=== PATIENT | female | born 1940 | race Caucasian/White ===

== ENCOUNTER 2019-03-06 11:05 | Outpatient (CLI) | payer MEDICARE, OTHER ==
[2019-03-06] MEDS ORDERED: IOVERSOL 320 100 ML VIAL IVP ONE ×2 (11:22→17:43)
[2019-03-06] MEDS ORDERED: IOVERSOL 320 50 ML VIAL ONE (11:22)
[2019-03-06 12:04] LABS: CREATININE 0.7 mg/dL (0.4-1.0)
--- NOTE | 2019-03-06 15:43 | CT Report ---
Reason: ABDOMINAL PAIN Procedure Date: 03/06/2019 Accession Number: [id number] / [id number] Procedure: CT - Abdomen/Pelvis W CPT Code: FULL RESULT: EXAM: CT ABDOMEN AND PELVIS EXAM DATE: 03/06/2019 12:45 PM. CLINICAL HISTORY: Abdominal pain. COMPARISONS: None. TECHNIQUE: Routine helical CT imaging was performed through the abdomen and pelvis. IV contrast: 100 mL of Optiray 320. Enteric contrast: Yes. Reconstructions: Coronal and sagittal. In accordance with CT protocol optimization, one or more of the following dose reduction techniques were utilized for this exam: automated exposure control, adjustment of mA and/or KV based on patient size, or use of iterative reconstructive technique. FINDINGS: Lung Bases: Unremarkable. Liver: Normal. No masses. Gallbladder/Bile Ducts: Unremarkable. Spleen: Normal. Pancreas: Normal. Adrenal Glands: Normal. Kidneys: There are bilateral renal hypodensities which are too small to characterize. Peritoneal Cavity/Bowel: There is sigmoid diverticulosis with focal thickening of the bowel wall in the region of a diverticulum and surrounding phlegmonous inflammatory changes with a minimal amount of free fluid in the pelvis. There is no free air or extramural abscess. Pelvic Organs: Normal. The bladder and visualized pelvic organs are within normal limits. Vasculature: No aneurysms or other significant abnormality. Bones: No significant abnormality. Other: None. IMPRESSION: Uncomplicated sigmoid diverticulitis. [facility] The above call report findings were discussed with Osmani Carrington, parts room assistant to Dr. Titus by Dr. Joseph Salazar at 03:39 PM on 03/06/2019.
[2019-03-06] MEDS ORDERED: IOVERSOL 320 50 ML VIAL PO ONE (17:43)
== END 2019-03-06 11:06 | disposition home or self-care (01) ==
LOC: LAB 11:05
PROVIDERS: ATTEND Internal Medicine
DX: K57.32 Diverticulitis of large intestine without perforation or abscess without bleeding (principal)
CPT/HCPCS: 36415; 74177; 82565; Q9967

== ENCOUNTER 2019-09-30 11:11 | Outpatient (CLI) | payer MEDICARE, OTHER ==
--- NOTE | 2019-09-30 14:45 | XRAY Report ---
Reason: L HIP PAIN Procedure Date: 09/30/2019 Accession Number: [id number] / [id number] Procedure: XR - Hip w/Pelvis 2-3V LT CPT Code: Final Report FULL RESULT: EXAM: LEFT HIP RADIOGRAPHY EXAM DATE: 09/30/2019 11:34 AM. CLINICAL HISTORY: Left hip pain. COMPARISON: None. TECHNIQUE: 2 views. FINDINGS: Bones: Normal. No fractures or bone lesion. Joints: Marginal osteophytosis is seen at the femoroacetabular joint left greater than right. No dislocation. The hip joint space is mildly to moderately narrowed. Soft Tissues: Normal. No soft tissue swelling. IMPRESSION: Degenerative changes left greater than right. [facility]
== END 2019-09-30 11:12 | disposition home or self-care (01) ==
LOC: DI 11:11
PROVIDERS: ATTEND Internal Medicine
DX: M16.0 Bilateral primary osteoarthritis of hip (principal)

== ENCOUNTER 2021-04-26 11:20 | Outpatient (CLI) | payer MEDICARE, OTHER | END 2021-04-26 23:59 | disposition home or self-care (01) | LOC: COV 11:20 | PROVIDERS: ATTEND Family Medicine | DX: R07.0 Pain in throat (principal); Z20.822 Contact with and (suspected) exposure to COVID-19 ==

== ENCOUNTER 2021-12-21 08:00 | Outpatient (CLI) | payer MEDICARE, OTHER ==
[2021-12-21 16:03] LABS: BASOPHILS # (AUTO) 0.1 10^3/uL (0.0-0.1); BASOPHILS % (AUTO) 1.1 %; EOSINOPHILS # (AUTO) 0.1 10^3/uL (0.0-0.7); EOSINOPHILS % (AUTO) 1.8 %; HCT - HEMATOCRIT 41.2 % (37.0-47.0); HGB - HEMOGLOBIN 13.8 g/dL (12.0-16.0); LYMPHOCYTES # (AUTO) 1.7 10^3/uL (1.5-3.5); LYMPHOCYTES % (AUTO) 37.3 %; MEAN CORPUSCULAR HEMOGLOBIN 32.1 pg (27.0-31.0); MEAN CORPUSCULAR HGB CONC 33.5 g/dL (32.0-36.0); MEAN CORPUSCULAR VOLUME 95.8 fL (81.0-99.0); MEAN PLATELET VOLUME 10.7 fL (7.9-10.8); MONOCYTES # (AUTO) 0.4 10^3/uL (0.0-1.0); MONOCYTES % (AUTO) 8.7 %; NEUTROPHILS # (AUTO) 2.3 10^3/uL (1.5-6.6); NEUTROPHILS % (AUTO) 51.1 %; PLT - PLATELET COUNT 221 10^3/uL (130-450); RED CELL DISTRIBUTION WIDTH 13.4 % (12.0-15.0); WHITE BLOOD COUNT 4.5 x10^3/uL (4.8-10.8)
[2021-12-21 16:45] LABS: ALBUMIN 4.1 g/dL (3.2-5.5); ALBUMIN/GLOBULIN RATIO 1.2 (1.0-2.2); ALKALINE PHOSPHATASE 79 IU/L (42-121); ALT ALANINE AMINOTRANSFERASE 17 IU/L (10-60); AST ASPARTATE AMINOTRANSFERASE 23 IU/L (10-42); BILIRUBIN,TOTAL 0.7 mg/dL (0.2-1.0); BUN - BLOOD UREA NITROGEN 15 mg/dL (6-20); CALCIUM 9.5 mg/dL (8.5-10.3); CARBON DIOXIDE - CO2 28 mmol/L (21-32); CHLORIDE 99 mmol/L (101-111); CHOL/HDL RATIO 3.6 (<4.4); CHOLESTEROL 243 mg/dL; CREATININE 0.6 mg/dL (0.4-1.0); GFR - MDRD 96 (>89); GLUCOSE 88 mg/dL (70-100); HDL CHOLESTEROL 67 mg/dL; LDL CHOLESTEROL,CALCULATED 161 mg/dL; LDL/HDL RATIO 2.4 (<4.4); POTASSIUM 3.7 mmol/L (3.5-5.0); SODIUM 136 mmol/L (135-145); TOTAL PROTEIN 7.4 g/dL (6.7-8.2); TRIGLYCERIDES 73 mg/dL; VLDL CHOLESTEROL 15 mg/dL
== END 2021-12-21 23:59 ==
LOC: LAB.R 08:00
PROVIDERS: ATTEND Internal Medicine
DX: Z00.00 Encounter for general adult medical examination without abnormal findings (principal); K21.9 Gastro-esophageal reflux disease without esophagitis; E78.5 Hyperlipidemia, unspecified; I10 Essential (primary) hypertension; M19.90 Unspecified osteoarthritis, unspecified site; Z79.899 Other long term (current) drug therapy; Z13.6 Encounter for screening for cardiovascular disorders; H93.19 Tinnitus, unspecified ear; B02.9 Zoster without complications
CPT/HCPCS: 80053; 80061; 83721; 84443; 85025

== ENCOUNTER 2022-05-27 13:43 | Outpatient (CLI) | payer MEDICARE, OTHER ==
--- NOTE | 2022-05-27 14:53 | Ultrasound Report ---
PROCEDURE: Duplex Ext Veins Left INDICATIONS: LEFT LEG PAIN TECHNIQUE: Real-time imaging, as well as color and pulse Doppler interrogation, were performed of the lower extr emity deep veins from the inguinal ligament to the popliteal fossa. COMPARISON: None. FINDINGS: The deep veins are normally compressible, and free of intraluminal thrombus. Color and pu lse Doppler demonstrate normal phasic intraluminal flow. There is normal augmentation response to di stal compression maneuver. IMPRESSION: No sonographic evidence of DVT. Reviewed by: Stu Law MD on 05/27/2022 2:51 PM PDT Approved by: Stu Law MD on 05/27/2022 2:51 PM PDT Station ID: [id number]
== END 2022-05-27 13:44 | disposition home or self-care (01) ==
LOC: DI 13:43
PROVIDERS: ATTEND Internal Medicine
DX: M79.605 Pain in left leg (principal)

== ENCOUNTER 2022-06-28 08:00 | Outpatient (CLI) | payer MEDICARE, OTHER ==
--- NOTE | 2022-06-29 00:03 | XRAY Report ---
PROCEDURE: Hip 2 View LT INDICATIONS: LEFT HIP PAIN TECHNIQUE: 2 views of the hip were acquired. COMPARISON: 05/05/2022 FINDINGS: Bones: No fractures or dislocations. Moderate left hip joint osteoarthritic changes are again seen with joint space narrowing, subchondral sclerosis and marginal osteophyte formation. No avascular nec rosis of femoral head. No suspicious bony lesions. The visualized pelvic ring appears intact. Soft tissues: No suspicious soft tissue calcifications or masses. IMPRESSION: Moderate left hip joint osteoarthritis. No acute fracture or dislocation. No evidence of avascular ne crosis. Reviewed by: Mathieu Hall MD on 06/29/2022 12:02 AM PDT Approved by: Mathieu Hall MD on 06/29/2022 12:02 AM PDT Station ID: [id number]
== END 2022-06-28 23:59 | disposition home or self-care (01) ==
LOC: DI.WOS 08:00
PROVIDERS: ATTEND Orthopaedic Surgery
DX: M16.12 Unilateral primary osteoarthritis, left hip (principal)